=== PATIENT | female | born 1990 | race Caucasian/White ===

== ENCOUNTER 2020-10-31 19:14 | Emergency (ER) | payer OTHER, SELFPAY ==
[~2020-10-31] VITALS: Ht 162.6 cm; Wt 63.5 kg
[2020-10-31 19:15] VITALS: BP 156/89
[2020-10-31] MEDS ORDERED: JUNETAB2 PO (19:23)
--- NOTE | 2020-11-02 05:09 | ECGEPIP ---
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
== END 2020-10-31 21:42 | disposition home or self-care (01) ==
LOC: M ED 19:14
DX: F11.10 Opioid abuse, uncomplicated (principal); R25.8 Other abnormal involuntary movements; F19.10 Other psychoactive substance abuse, uncomplicated

== ENCOUNTER → 2021-09-30 | Outpatient (CLI) | payer OTHER ==
[~2021-09-30] MED LIST: JUNETAB2 PO
[2021-09-30 12:45] LABS: HEMATOCRIT 40.3 % (36.0-47.0); HEMOGLOBIN 14.1 g/dl (12.0-15.5); MEAN CORPUSCULAR HEMOGLOBIN 28.8 pg (27.0-33.0); MEAN CORPUSCULAR VOLUME 82.2 fl (80.0-96.0); PLATELET COUNT, AUTOMATED 376 10^3/uL (150-450); WHITE BLOOD COUNT 8.3 10^3/uL (4.0-10.0)
[2021-09-30 12:50] LABS: APPEARANCE, URINE HAZY (CLEAR); BACTERIA, URINE AUTO 1+ (NEGATIVE); BILIRUBIN, URINE AUTO NEGATIVE (NEGATIVE); BLOOD, URINE BLOOD NEGATIVE (NEGATIVE); COLOR, URINE YELLOW (YELLOW); GLUCOSE, URINE (UA) AUTO NEGATIVE (NEGATIVE); KETONE, URINE AUTO NEGATIVE (NEGATIVE); LEUKOCYTE ESTERASE, URINE AUTO 2+ (NEGATIVE); MUCUS, URINE SMALL (NEGATIVE); NITRITE, URINE AUTO NEGATIVE (NEGATIVE); PROTEIN, URINE AUTO NEGATIVE (NEGATIVE); RBC, URINE AUTO 4 /HPF (0-3); SPECIFIC GRAVITY URINE AUTO 1.019 (1.002-1.035); SQUAMOUS EPITHELIAL CELL UR AU 4 /HPF (0-6); UROBILINOGEN, URINE AUTO 0.2 mg/dL (0.0-2.0); WBC, URINE AUTO 6 /HPF (0-3)
[2021-09-30 13:16] LABS: ALBUMIN 4.2 GM/DL (3.2-5.2); ALT/SGPT 24 U/L (12-78); BILIRUBIN,TOTAL 0.6 MG/DL (0.2-1.0); BLOOD UREA NITROGEN 12 MG/DL (7-18); CALCIUM LEVEL 9.8 MG/DL (8.5-10.1); CARBON DIOXIDE LEVEL 31 MEQ/L (21-32); CHLORIDE LEVEL 104 MEQ/L (98-107); CHOLESTEROL LEVEL 199 MG/DL (<200); CHOLESTEROL RISK RATIO 2.235 (<5); CREATININE FOR GFR 0.97 MG/DL (0.55-1.30); FREE T4 0.95 NG/DL (0.76-1.46); GLOMERULAR FILTRATION RATE > 60.0 (>60); GLUCOSE, FASTING 94 MG/DL (70-100); HDL CHOLESTEROL 89 MG/DL (>40); LDL CHOLESTEROL 98 MG/DL (<100); NON-HDL-C 110 MG/DL; POTASSIUM SERUM 4.2 MEQ/L (3.5-5.1); SODIUM LEVEL 138 MEQ/L (136-145); TOTAL 25(OH) VITAMIN D 28.4 NG/ML (30.0-100.0); TOTAL PROTEIN 7.4 GM/DL (6.4-8.2); TRIGLYCERIDES LEVEL 61 MG/DL (<150)
== END ==
LOC: M WUC 12:00
PROVIDERS: ATTEND Internal Medicine
DX: R21 Rash and other nonspecific skin eruption (principal); E55.9 Vitamin D deficiency, unspecified

== ENCOUNTER 2022-11-24 00:43 | Emergency (ER) | payer OTHER ==
[~2022-11-24] VITALS: Ht 162.6 cm; Wt 70.8 kg
[2022-11-24 00:46] VITALS: TEMP 99.1
[2022-11-24] MEDS ORDERED: METR0.759 (00:53)
[2022-11-24] MEDS ORDERED: MULTTAB20 PO (00:53)
[2022-11-24 02:28] VITALS: O2SAT 99
[2022-11-24 02:29] LABS: BASO % 0.3 % (0.0-1.0); EOS # 0.1 10^3/uL (0.0-0.5); EOS % 0.9 % (0.0-3.0); HEMATOCRIT 33.5 % (36.0-47.0); HEMOGLOBIN 11.5 g/dl (12.0-15.5); LYMPH # 2.1 10^3/uL (1.5-5.0); LYMPH % 22.1 % (24.0-44.0); MEAN CORPUSCULAR HEMOGLOBIN 29.4 pg (27.0-33.0); MEAN CORPUSCULAR HGB CONC 34.3 g/dl (32.0-36.5); MEAN CORPUSCULAR VOLUME 85.7 fl (80.0-96.0); MONO # 0.5 10^3/uL (0.0-0.8); MONO % 4.9 % (2.0-8.0); NEUTROPHILS # 6.9 10^3/uL (1.5-8.5); NEUTROPHILS % 71.5 % (36.0-66.0); PLATELET COUNT, AUTOMATED 247 10^3/uL (150-450); RED BLOOD COUNT 3.91 10^6/uL (4.00-5.40); WHITE BLOOD COUNT 9.6 10^3/uL (4.0-10.0)
[2022-11-24 02:40] LABS: LIPASE 25 U/L (12-53)
[2022-11-24 02:41] LABS: AMYLASE 45 U/L (30-118)
[2022-11-24 02:42] LABS: ALBUMIN 3.1 G/DL (3.2-5.2); ALKALINE PHOSPHATASE 66 U/L (46-116); ALT/SGPT 36 U/L (7.0-40); AST/SGOT 26 U/L (<34); BILIRUBIN,DIRECT < 0.1 MG/DL (<0.4); BILIRUBIN,TOTAL 0.4 MG/DL (0.3-1.2); BLOOD UREA NITROGEN 11 MG/DL (9-23); CALCIUM LEVEL 9.1 MG/DL (8.5-10.1); CARBON DIOXIDE LEVEL 24 MMOL/L (20-31); CHLORIDE LEVEL 105 MMOL/L (98-107); CK-MB VALUE MASS 3.2 NG/ML (<3.6); CPK CREATINE PHOSPHOKINASE 144 U/L (34-145); CREATININE FOR GFR 0.59 MG/DL (0.55-1.30); GLOMERULAR FILTRATION RATE > 60.0 (>60); GLUCOSE, FASTING 93 MG/DL (60-100); MB/CK RELATIVE INDEX 2.22 (< OR =4); POTASSIUM SERUM 3.7 MMOL/L (3.5-5.1); SODIUM LEVEL 137 MMOL/L (136-145); TOTAL PROTEIN 5.9 G/DL (5.7-8.2)
[2022-11-24 02:44] LABS: INR 0.89; PARTIAL THROMBOPLASTIN TIME 26.3 SECONDS (24.8-34.2); PROTHROMBIN TIME 12.2 SECONDS (12.5-14.5)
[2022-11-24 02:49] VITALS: BP 154/87
[2022-11-24 02:59] LABS: APPEARANCE, URINE HAZY (CLEAR); BACTERIA, URINE AUTO NEGATIVE (NEGATIVE); BILIRUBIN, URINE AUTO NEGATIVE (NEGATIVE); BLOOD, URINE BLOOD NEGATIVE (NEGATIVE); COLOR, URINE YELLOW (YELLOW); GLUCOSE, URINE (UA) AUTO NEGATIVE (NEGATIVE); KETONE, URINE AUTO NEGATIVE (NEGATIVE); LEUKOCYTE ESTERASE, URINE AUTO TRACE (NEGATIVE); MUCUS, URINE SMALL (NEGATIVE); NITRITE, URINE AUTO NEGATIVE (NEGATIVE); PROTEIN, URINE AUTO NEGATIVE (NEGATIVE); RBC, URINE AUTO 2 /HPF (0-3); SPECIFIC GRAVITY URINE AUTO 1.023 (1.002-1.035); SQUAMOUS EPITHELIAL CELL UR AU 9 /HPF (0-6); UROBILINOGEN, URINE AUTO 0.2 mg/dL (0.0-2.0); WBC, URINE AUTO 3 /HPF (0-3)
[2022-11-24 03:41] LABS: BARBITURATES URINE NEGATIVE (NEGATIVE); BENZODIAZEPINES URINE NEGATIVE (NEGATIVE); COCAINE METABOLITE URINE NEGATIVE (NEGATIVE); METHADONE URINE NEGATIVE (NEGATIVE); OPIATES URINE NEGATIVE (NEGATIVE); PHENCYCLIDINE URINE NEGATIVE (NEGATIVE)
[2022-11-24 03:44] LABS: AMPHETAMINES LEVEL URINE POSITIVE (NEGATIVE); CANNABINOIDS URINE POSITIVE (NEGATIVE)
== END 2022-11-24 02:50 | disposition left against medical advice (07) ==
LOC: M ED 00:43
DX: O26.892 Other specified pregnancy related conditions, second trimester (principal); S09.90XA Unspecified injury of head, initial encounter; W01.198A Fall on same level from slipping, tripping and stumbling with subsequent striking against other object, initial encounter; J45.909 Unspecified asthma, uncomplicated; Z3A.19 19 weeks gestation of pregnancy; Z79.810 Long term (current) use of selective estrogen receptor modulators (SERMs); Z53.9 Procedure and treatment not carried out, unspecified reason

== ENCOUNTER 2023-02-28 12:06 | Inpatient (IN) | payer OTHER, MEDICAID ==
[~2023-02-28] VITALS: Ht 162.6 cm; Wt 86.1 kg
[2023-02-28] VITALS (21 sets, daily range): BP systolic 108–185; BP diastolic 61–139; TEMP 97; O2SAT 79–100
[~2023-02-28 12:06] MED LIST changes: +METR0.759; +MULTTAB20 PO
[2023-02-28] MEDS ORDERED: HOME MED LIST COMPLETE! XX SCH (12:40)
[2023-02-28] MEDS ORDERED: LABETALOL 100MG/20ML VIAL IV STA ×3 (13:06→13:36)
[2023-02-28] MEDS ORDERED: PENICILLIN G POTASSIUM 5 MU IV 5 MU in D5W MINI-BAG PLUS 100 ML IV STA (13:14)
[2023-02-28] MEDS ORDERED: LIDOCAINE 1% MDV 20ML VIAL INFIL PRN (13:15)
[2023-02-28] MEDS ORDERED: CARBOPROST TROMETHAMINE 250 MCG/ML AMP IM PRN (13:15)
[2023-02-28] MEDS ORDERED: OXYTOCIN INJ 10UNITS/ML 1ML VIAL IM PRN (13:15)
[2023-02-28] MEDS ORDERED: TRANEXAMIC ACID INJection 1,000 MG in NS 100 ML IV PRN (13:15)
[2023-02-28] MEDS ORDERED: OXYTOCIN DRIP 30 UNITS in IV 1 EA IV PRN ×4 (13:15)
[2023-02-28] MEDS ORDERED: LR 1,000 ML IV SCH (13:15)
[2023-02-28] MEDS ORDERED: CALCIUM GLUCONATE 1,000 MG in D5W MINI-BAG PLUS 100 ML IV PRN (13:15)
[2023-02-28] MEDS ORDERED: MAG Sulf (L&D) 4 GM/100 ML 4 GM in IV 1 EA IV ONE (13:30)
[2023-02-28] MEDS ORDERED: BETAMETHASONE SOLUSPAN 6MG/ML 5ML VIAL IM SCH (13:30)
[2023-02-28 13:52] LABS: HEMATOCRIT 33.4 % (36.0-47.0); HEMOGLOBIN 11.2 g/dl (12.0-15.5); MEAN CORPUSCULAR HEMOGLOBIN 27.2 pg (27.0-33.0); MEAN CORPUSCULAR HGB CONC 33.5 g/dl (32.0-36.5); MEAN CORPUSCULAR VOLUME 81.1 fl (80.0-96.0); PLATELET COUNT, AUTOMATED 258 10^3/uL (150-450); RED BLOOD COUNT 4.12 10^6/uL (4.00-5.40); WHITE BLOOD COUNT 8.3 10^3/uL (4.0-10.0)
[2023-02-28] MEDS ORDERED: MAG Sulf (OBGYN) 20GM/500ML 20,000 MG in IV 1 EA IV SCH (14:00)
[2023-02-28 14:35] LABS: TOTAL PROTEIN,RANDOM URINE 34.8 MG/DL (0.0-14.0)
[2023-02-28 14:40] LABS: CREATININE,RANDOM URINE 237.1 MG/DL
[2023-02-28 15:24] LABS: BARBITURATES URINE REFLEX NEGATIVE (NEGATIVE); BENZODIAZEPINES URINE REFLEX NEGATIVE (NEGATIVE); COCAINE METABOLITE URINE REFLE NEGATIVE (NEGATIVE); METHADONE URINE REFLEX NEGATIVE (NEGATIVE); OPIATES URINE REFLEX NEGATIVE (NEGATIVE); PHENCYCLIDINE URINE REFLEX NEGATIVE (NEGATIVE)
[2023-02-28 15:40] LABS: AMPHETAMINES URINE REFLEX PENDING CONFIRMATION (NEGATIVE); CANNABINOIDS URINE REFLEX PENDING CONFIRMATION (NEGATIVE)
[2023-02-28 15:59] LABS: LDH LACTATE DEHYDROGENASE 357 U/L (120-246)
[2023-02-28 16:00] LABS: ALT/SGPT 51 U/L (7.0-40); AST/SGOT 54 U/L (<34); BILIRUBIN,TOTAL 0.4 MG/DL (0.3-1.2); CREATININE FOR GFR 0.62 MG/DL (0.55-1.30); GLOMERULAR FILTRATION RATE > 60.0 (>60)
[2023-02-28] MEDS ORDERED: BICITRA 30ML SOLN UDC PO ONE (16:30)
[2023-02-28] MEDS ORDERED: ceFAZolin SOD 2 GM in IV 1 EA IV ONE (16:30)
[2023-02-28 16:52] LABS: URIC ACID 3.9 MG/DL (3.1-7.8)
[2023-02-28] MEDS ORDERED: MORPHINE PRES-FREE INJ 10 MG/10 ML VIAL As Ordered ONE (16:56)
[2023-02-28] MEDS ORDERED: KETOROLAC 60MG 2ML VIAL As Ordered ONE (16:56)
[2023-02-28] MEDS ORDERED: ONDANSETRON 4MG 2ML VIAL As Ordered ONE ×2 (16:56→18:32)
[2023-02-28] MEDS ORDERED: OXYTOCIN INJ 10UNITS/ML 1ML VIAL As Ordered ONE ×2 (16:56→18:32)
[2023-02-28] MEDS ORDERED: AZITHROMYCIN INJ 500 MG, VIAL MATE ADAPTER 1 EACH in NS 250 ML IV ONE (17:15)
[2023-02-28] MEDS ORDERED: AZITHROMYCIN INJ 500MG VIAL As Ordered ONE (17:19)
[2023-02-28] MEDS ORDERED: valACYclovir HCL 500 MG TAB PO SCH (18:00)
[2023-02-28] MEDS ORDERED: PEN G POT 3,000,000 UNIT/50 ML 3,000,000 UNIT in IV 1 EA IV SCH (18:00)
[2023-02-28] MEDS ORDERED: PHENYLephrine 500MCG 5ML (100MCG/ML) SYRINGE As Ordered ONE (18:07)
[2023-02-28] MEDS ORDERED: ATROPINE SULF 0.4 MG/ML 1ML VIAL As Ordered ONE (18:07)
[2023-02-28] MEDS ORDERED: ePHEDrine SULFATE 25 MG/5 ML(5MG/ML) SYRINGE As Ordered ONE (18:07)
[2023-02-28] MEDS ORDERED: KETAMINE HCL 200MG/20ML VIAL As Ordered ONE (18:27)
[2023-02-28 18:49] LABS: CORD GAS ABE V -4.9; CORD GAS HCO3 V 22.1 MMOL/L; CORD GAS O2 SAT V 58.5 %; CORD GAS PCO2 V 50.4 mmHg; CORD GAS PH V 7.26 UNITS; CORD GAS PO2 V 27.6 mmHg; CORD GAS SBC V 19.9 MMOL/L; CORD GAS TCO2 V 23.7 MMOL/L
[2023-02-28] MEDS ORDERED: RHOGAM 300MCG (1500IU) INJ IM SCH (19:00)
[2023-02-28] MEDS ORDERED: PERCOCET 5MG/325MG TAB PO PRN (19:00)
[2023-02-28] MEDS ORDERED: SIMETHICONE 80MG CHEW TAB PO PRN (19:00)
[2023-02-28] MEDS ORDERED: OXYTOCIN DRIP 30 UNITS in IV 1 EA IV SCH (19:00)
[2023-02-28] MEDS ORDERED: ONDANSETRON 4MG 2ML VIAL IV PRN (19:00)
[2023-02-28] MEDS ORDERED: IBUP80TA PO (19:13)
[2023-02-28] MEDS ORDERED: PERCOCET PO (19:13)
[2023-02-28] MEDS ORDERED: COLA100C5 PO (19:13)
[2023-02-28] MEDS: DOCUSATE SODIUM 100MG CAPSULE PO SCH (22:25)
[2023-02-28] MEDS: PERCOCET 5MG/325MG TAB PO PRN (22:26)
[2023-03-01] VITALS (7 sets, daily range): BP systolic 117–148; BP diastolic 60–86; O2SAT 95–98
[2023-03-01] MEDS ORDERED: diphenhydrAMINE 50MG/ML VIAL IV PRN (00:30)
[2023-03-01] MEDS: LR 1,000 ML IV SCH ×2 (01:17→06:40)
[2023-03-01] MEDS: KETOROLAC 30 MG/ML 1ML VIAL IV SCH ×3 (01:17→13:38)
[2023-03-01 04:09] LABS: HEMATOCRIT 31.2 % (36.0-47.0); HEMOGLOBIN 10.5 g/dl (12.0-15.5); MEAN CORPUSCULAR HEMOGLOBIN 27.4 pg (27.0-33.0); MEAN CORPUSCULAR HGB CONC 33.7 g/dl (32.0-36.5); MEAN CORPUSCULAR VOLUME 81.5 fl (80.0-96.0); PLATELET COUNT, AUTOMATED 278 10^3/uL (150-450); RED BLOOD COUNT 3.83 10^6/uL (4.00-5.40); WHITE BLOOD COUNT 15.3 10^3/uL (4.0-10.0)
[2023-03-01 04:32] LABS: URIC ACID 4.8 MG/DL (3.1-7.8)
[2023-03-01 04:33] LABS: LDH LACTATE DEHYDROGENASE 305 U/L (120-246)
[2023-03-01 04:34] LABS: ALT/SGPT 43 U/L (7.0-40); AST/SGOT 52 U/L (<34); BILIRUBIN,TOTAL 0.4 MG/DL (0.3-1.2); CREATININE FOR GFR 0.74 MG/DL (0.55-1.30); GLOMERULAR FILTRATION RATE > 60.0 (>60)
[2023-03-01 07:38] LABS: HEMATOCRIT 29.6 % (36.0-47.0); HEMOGLOBIN 10.1 g/dl (12.0-15.5); MEAN CORPUSCULAR HEMOGLOBIN 27.5 pg (27.0-33.0); MEAN CORPUSCULAR HGB CONC 34.1 g/dl (32.0-36.5); MEAN CORPUSCULAR VOLUME 80.7 fl (80.0-96.0); PLATELET COUNT, AUTOMATED 284 10^3/uL (150-450); RED BLOOD COUNT 3.67 10^6/uL (4.00-5.40); WHITE BLOOD COUNT 16.2 10^3/uL (4.0-10.0)
[2023-03-01] MEDS: PRENATAL VITAMINS CHEWABLE TABLET PO SCH (08:56)
[2023-03-01] MEDS: DOCUSATE SODIUM 100MG CAPSULE PO SCH ×2 (08:56→20:17)
[2023-03-01] MEDS: PERCOCET 5MG/325MG TAB PO PRN ×2 (08:59→13:57)
[2023-03-02] VITALS (8 sets, daily range): BP systolic 129–184; BP diastolic 67–93; O2SAT 95–99
[2023-03-02] MEDS: IBUPROFEN 800 MG TAB PO PRN ×3 (03:30→22:38)
[2023-03-02] MEDS: DOCUSATE SODIUM 100MG CAPSULE PO SCH ×2 (08:03→20:08)
[2023-03-02] MEDS: PRENATAL VITAMINS CHEWABLE TABLET PO SCH (08:03)
[2023-03-02] MEDS: PERCOCET 5MG/325MG TAB PO PRN ×2 (08:03→18:22)
[2023-03-02] MEDS ORDERED: MEASLES,MUMPS,RUBELLA VACCINE INJ (MMR-II) SC.IMMUN ONE (09:00)
[2023-03-02] MEDS ORDERED: MOM 30ML SUSPENSION UDC PO PRN (10:50)
[2023-03-03 02:00] VITALS: BP_SYST 138; BP_SYST 174; BP_DIAS 86; BP_DIAS 88; O2SAT 96
[2023-03-03 05:42] VITALS: BP 148/84; O2SAT 98
[2023-03-03] MEDS: PRENATAL VITAMINS CHEWABLE TABLET PO SCH (08:15)
[2023-03-03] MEDS: DOCUSATE SODIUM 100MG CAPSULE PO SCH (08:15)
[2023-03-03] MEDS: IBUPROFEN 800 MG TAB PO PRN (08:23)
[2023-03-03 10:00] VITALS: BP 144/89; O2SAT 98
[2023-03-07 05:07] LABS: Amphetamine Positive (.); Amphetamines Positive (.); Cannabinoid Positive (.); Carboxy THC Conf, MS, UR 76 ng/mL (Cutoff=10); GC Amphetamine 4559 ng/mL (Cutoff=500); GC Methamphetam 3697 ng/mL (Cutoff=500); Methamphetamine Positive (.)
== END 2023-03-03 12:19 | disposition home or self-care (01) | DRG 540 ==
LOC: M LDO 12:06 → M LDI 13:15 → M OBS 21:40
PROVIDERS: ADMIT Advanced Practice Midwife; ATTEND Advanced Practice Midwife
PROC: 10D00Z1 Extraction of Products of Conception, Low, Open Approach (ICD-10-PCS; principal; 2023-02-28 17:00)
DX: O14.14 Severe pre-eclampsia complicating childbirth (principal); Z37.0 Single live birth; Z3A.33 33 weeks gestation of pregnancy

== ENCOUNTER 2023-09-23 05:31 | Emergency (ER) | payer MEDICAID, OTHER ==
[~2023-09-23] VITALS: Ht 162.6 cm; Wt 63.1 kg
[~2023-09-23 05:31] MED LIST changes: +COLA100C5 PO; +IBUP80TA PO; +PERCOCET PO
[2023-09-23] MEDS ORDERED: PRED20TA PO (07:11)
[2023-09-23] MEDS: predniSONE 20 MG TAB PO ONE (07:15)
[2023-09-23 07:18] VITALS: BP 143/87; TEMP 98.4; O2SAT 100
== END 2023-09-23 07:24 | disposition home or self-care (01) ==
LOC: M ED 05:31
DX: L30.9 Dermatitis, unspecified (principal); F17.200 Nicotine dependence, unspecified, uncomplicated; F10.10 Alcohol abuse, uncomplicated; Z79.52 Long term (current) use of systemic steroids
CPT/HCPCS: 99283; J7512

== ENCOUNTER 2023-10-16 20:04 | Emergency (ER) | payer OTHER ==
[~2023-10-16] VITALS: Ht 162.6 cm; Wt 63.9 kg
[~2023-10-16 20:04] MED LIST changes: -METR0.759; +METR70GE8; +PRED20TA PO
[2023-10-17 00:04] VITALS: BP 120/70; TEMP 98.3; O2SAT 97
== END 2023-10-17 00:26 | disposition home or self-care (01) ==
LOC: M ED 20:04
DX: S06.0X0A Concussion without loss of consciousness, initial encounter (principal); S00.83XA Contusion of other part of head, initial encounter; S20.224A Contusion of middle back wall of thorax, initial encounter; S40.022A Contusion of left upper arm, initial encounter; Y04.8XXA Assault by other bodily force, initial encounter; F90.9 Attention-deficit hyperactivity disorder, unspecified type; F32.A Depression, unspecified; F31.9 Bipolar disorder, unspecified; F17.200 Nicotine dependence, unspecified, uncomplicated; Y92.009 Unspecified place in unspecified non-institutional (private) residence as the place of occurrence of the external cause; Z79.52 Long term (current) use of systemic steroids; Y99.9 Unspecified external cause status; Y93.89 Activity, other specified

== ENCOUNTER 2023-12-30 19:12 | Emergency (ER) | payer MEDICAID, OTHER ==
[~2023-12-30] VITALS: Ht 162.6 cm; Wt 63.5 kg
[2023-12-30] MEDS: LIDOCAINE 1% MDV 20ML VIAL SC ONE (23:10)
[2023-12-30] MEDS ORDERED: CEPH500C PO (23:30)
[2023-12-30] MEDS: CEPHALEXIN 500 MG CAP PO ONE (23:33)
[2023-12-30 23:35] VITALS: BP 112/70; TEMP 97.2; O2SAT 98
== END 2023-12-30 23:36 | disposition home or self-care (01) ==
LOC: M ED 19:12
DX: J34.89 Other specified disorders of nose and nasal sinuses (principal); M79.5 Residual foreign body in soft tissue; J45.909 Unspecified asthma, uncomplicated; F17.200 Nicotine dependence, unspecified, uncomplicated; Z79.52 Long term (current) use of systemic steroids; Z79.2 Long term (current) use of antibiotics

== ENCOUNTER 2024-02-06 21:26 | Emergency (ER) | payer OTHER, MEDICAID ==
[~2024-02-06] VITALS: Ht 162.6 cm; Wt 59.8 kg
[~2024-02-06 21:26] MED LIST changes: +CEPH500C PO
[2024-02-06 21:28] VITALS: BP 130/83; TEMP 97.5; O2SAT 98
== END 2024-02-06 22:01 | disposition left against medical advice (07) ==
LOC: M ED 21:26
DX: Z53.21 Procedure and treatment not carried out due to patient leaving prior to being seen by health care provider (principal)

== ENCOUNTER → 2024-02-25 | Outpatient (REF) | payer OTHER, MEDICAID ==
[2024-02-26 12:31] LABS: BASO % 0.6 % (0.0-1.0); EOS # 0.1 10^3/uL (0.0-0.5); EOS % 1.4 % (0.0-3.0); HEMATOCRIT 39.2 % (36.0-47.0); HEMOGLOBIN 13.3 g/dl (12.0-15.5); LYMPH # 2.4 10^3/uL (1.5-5.0); LYMPH % 33.6 % (24.0-44.0); MEAN CORPUSCULAR HEMOGLOBIN 28.5 pg (27.0-33.0); MEAN CORPUSCULAR HGB CONC 33.9 g/dl (32.0-36.5); MEAN CORPUSCULAR VOLUME 84.1 fl (80.0-96.0); MONO # 0.4 10^3/uL (0.0-0.8); NEUTROPHILS # 4.3 10^3/uL (1.5-8.5); NEUTROPHILS % 59.1 % (36.0-66.0); PLATELET COUNT, AUTOMATED 409 10^3/uL (150-450); RED BLOOD COUNT 4.66 10^6/uL (4.00-5.40); WHITE BLOOD COUNT 7.2 10^3/uL (4.0-10.0)
[2024-02-26 12:55] LABS: ALBUMIN 3.8 G/DL (3.2-5.2); ALKALINE PHOSPHATASE 92 U/L (46-116); ALT/SGPT 18 U/L (7.0-40); AST/SGOT 16 U/L (<34); BILIRUBIN,TOTAL 0.3 MG/DL (0.3-1.2); BLOOD UREA NITROGEN 14 MG/DL (9-23); CALCIUM LEVEL 9.4 MG/DL (8.5-10.1); CARBON DIOXIDE LEVEL 22 MMOL/L (20-31); CHLORIDE LEVEL 110 MMOL/L (98-107); CHOLESTEROL LEVEL 179 MG/DL (<200); CHOLESTEROL RISK RATIO 2.53 (<5); CREATININE FOR GFR 0.81 MG/DL (0.55-1.30); GLOMERULAR FILTRATION RATE > 60.0 (>60); GLUCOSE, FASTING 125 MG/DL (60-100); HDL CHOLESTEROL 70.7 MG/DL (>40); LDL CHOLESTEROL 61.3 MG/DL (<100); NON-HDL-C 108.3 MG/DL; POTASSIUM SERUM 4.9 MMOL/L (3.5-5.1); SODIUM LEVEL 137 MMOL/L (136-145); TOTAL PROTEIN 6.8 G/DL (5.7-8.2); TRIGLYCERIDES LEVEL 235 MG/DL (<150)
[2024-02-26 12:56] LABS: THYROID STIMULATING HORMONE 2.461 uIU/ML (0.55-4.78)
[2024-02-26 12:57] LABS: TOTAL 25(OH) VITAMIN D 33.5 NG/ML (20.0-100.0)
[2024-02-26 13:27] LABS: HIV 1&2 SCREEN NEGATIVE (NEGATIVE)
[2024-02-26 13:34] LABS: HEPATITIS C VIRUS ABY INDEX 0.02 INDEX (<0.8)
== END ==
LOC: M LAB REF 11:53
PROVIDERS: ATTEND Nurse Practitioner Family
DX: Z13.220 Encounter for screening for lipoid disorders (principal); Z13.29 Encounter for screening for other suspected endocrine disorder; Z11.59 Encounter for screening for other viral diseases; Z11.4 Encounter for screening for human immunodeficiency virus [HIV]; Z11.3 Encounter for screening for infections with a predominantly sexual mode of transmission; E55.9 Vitamin D deficiency, unspecified; Z13.1 Encounter for screening for diabetes mellitus

== ENCOUNTER → 2024-04-20 | Outpatient (CLI) | payer OTHER ==
[2024-04-20 09:35] LABS: BASO % 0.4 % (0.0-1.0); EOS # 0.2 10^3/uL (0.0-0.5); EOS % 1.7 % (0.0-3.0); HEMATOCRIT 37.2 % (36.0-47.0); LYMPH # 2.5 10^3/uL (1.5-5.0); LYMPH % 27.4 % (24.0-44.0); MEAN CORPUSCULAR HEMOGLOBIN 30.2 pg (27.0-33.0); MEAN CORPUSCULAR HGB CONC 34.9 g/dl (32.0-36.5); MEAN CORPUSCULAR VOLUME 86.3 fl (80.0-96.0); MONO # 0.5 10^3/uL (0.0-0.8); MONO % 5.8 % (2.0-8.0); NEUTROPHILS % 64.5 % (36.0-66.0); PLATELET COUNT, AUTOMATED 322 10^3/uL (150-450); RED BLOOD COUNT 4.31 10^6/uL (4.00-5.40); WHITE BLOOD COUNT 9.3 10^3/uL (4.0-10.0)
[2024-04-20 09:39] LABS: ERYTHROCYTE SEDIMENTATION RATE 5 mm/hr (0-20)
[2024-04-20 10:06] LABS: LDH LACTATE DEHYDROGENASE 200 U/L (120-246)
[2024-04-20 10:09] LABS: RHEUMATOID FACTOR QUANT < 3.5 IU/ML (<14)
[2024-04-20 10:26] LABS: HCG, SERUM QUANTITATIVE 89389.1 MIU/ML (<4.2)
== END ==
LOC: M LAB 08:54
PROVIDERS: ATTEND Physician Assistant
DX: N91.2 Amenorrhea, unspecified (principal); M25.50 Pain in unspecified joint

== ENCOUNTER 2024-07-25 16:34 | Emergency (ER) | payer OTHER | END 2024-07-25 17:29 | disposition left against medical advice (07) | LOC: M ED 16:34 | DX: Z53.21 Procedure and treatment not carried out due to patient leaving prior to being seen by health care provider (principal) ==

== ENCOUNTER 2025-04-03 05:54 | Emergency (ER) | payer OTHER ==
[~2025-04-03] VITALS: Ht 162.6 cm; Wt 66.9 kg
[2025-04-03 05:56] VITALS: TEMP 98.3
[2025-04-03 06:55] VITALS: BP 127/82; O2SAT 100
[2025-04-03] MEDS ORDERED: MUPI2OI TOP (07:07)
== END 2025-04-03 07:28 | disposition home or self-care (01) ==
LOC: M ED 05:54
DX: J06.9 Acute upper respiratory infection, unspecified (principal); J34.9 Unspecified disorder of nose and nasal sinuses; Z79.899 Other long term (current) drug therapy

== ENCOUNTER 2025-04-04 12:08 | Emergency (ER) | payer MEDICAID, OTHER, SELFPAY ==
[~2025-04-04] VITALS: Ht 162.6 cm; Wt 64.3 kg
[~2025-04-04 12:08] MED LIST changes: +MUPI2OI TOP
[2025-04-04 12:11] VITALS: BP 160/84; TEMP 97.8; O2SAT 99
== END 2025-04-04 12:56 | disposition left against medical advice (07) ==
LOC: M ED 12:08
DX: Z53.21 Procedure and treatment not carried out due to patient leaving prior to being seen by health care provider (principal)